=== PATIENT | male | born 1950 | race Caucasian/White ===

== ENCOUNTER 2024-02-28 15:18 | Inpatient (IN) | payer MEDICARE, MEDICAID ==
[~2024-02-28] VITALS: Ht 170.2 cm; Wt 72.1 kg
[2024-02-28 15:23] VITALS: O2SAT 96
[2024-02-28 16:15] LABS: CHLORIDE 111 mEq/L (98-107); POTASSIUM 5.7 mEq/L (3.5-5.1); SODIUM 139 mEq/L (136-145)
[2024-02-28 16:16] LABS: CALCIUM 6.8 mg/dL (8.7-10.4); CARBON DIOXIDE 12 mEq/L (21-32)
[2024-02-28 16:19] LABS: INR 1.5; PROTHROMBIN TIME 16.5 sec (9.6-11.0)
[2024-02-28 16:21] LABS: CREATININE 4.9 mg/dL (0.6-1.3); GLUCOSE 65 mg/dL (70-105)
[2024-02-28] MEDS: SODIUM CHLORIDE 0.9% 1000ML BAG (SEPSIS BOLUS) IV ONE (16:22)
[2024-02-28] MEDS: CEFTRIAXONE 1GM/50ML 50 ML IV ONE (16:22)
[2024-02-28 16:23] LABS: ALANINE AMINOTRANSFERASE 25 IU/L (10-49); ALBUMIN 3.1 g/dL (3.2-4.8); ASPARTATE AMINOTRANSFERASE 159 IU/L (<34); BILIRUBIN TOTAL 2.9 mg/dL (0.1-1.0)
[2024-02-28 16:24] LABS: PROTEIN TOTAL 5.9 g/dL (6.0-8.3)
[2024-02-28] MEDS: DEXTROSE 50% WATER 50ML SYRINGE IV ONE (16:29)
[2024-02-28 16:37] LABS: UREA NITROGEN BLOOD 118 mg/dL (9-23)
[2024-02-28 16:38] LABS: TROPONIN I HIGH SENSITIVITY 189 ng/L (3.0-53)
[2024-02-28 17:33] LABS: MEAN CORPUSCULAR HGB CONC 32.9 g/dL (31.0-37.0); MEAN CORPUSCULAR VOLUME 88.1 fL (80.0-94.0); MEAN PLATELET VOLUME 7.3 fl (7.4-10.4); RED BLOOD CELL COUNT 2.14 mill/uL (4.7-6.1); RED CELL DISTRIBUTION WIDTH 21.6 % (11.6-14.6); WHITE BLOOD COUNT 31.5 x1000/uL (4.5-11.0)
[2024-02-28 17:34] LABS: DIFFERENTIAL COMMENT 1
[2024-02-28] MEDS ORDERED: CLOPIDOGREL 75MG TABLET PO ONE (17:45)
[2024-02-28] MEDS ORDERED: ASPIRIN 325MG EC TABLET PO ONE (17:45)
[2024-02-28 17:47] LABS: HEMATOCRIT. 18.8 % (42.0-52.0); HEMOGLOBIN. 6.2 g/dL (14.0-18.0); PLATELET 22 x1000/uL (130-400)
[2024-02-28 17:56] LABS: CLARITY URINE TURBID (CLEAR); COLOR URINE DARK YELLOW (YELLOW); GLUCOSE URINE NEGATIVE (NEGATIVE); KETONES URINE TRACE (NEGATIVE); LEUKOCYTE ESTERASE URINE 1+ (NEGATIVE); NITRITE URINE NEGATIVE (NEGATIVE); OCCULT BLOOD URINE 3+ (NEGATIVE); PH URINE 5.5 (4.5-8.0); PROTEIN URINE 3+ (NEGATIVE); SPECIFIC GRAVITY URINE 1.015 (1.005-1.030)
[2024-02-28] MEDS ORDERED: IPRATROPIUM/ALBUTEROL 0.5-3(2.5)MG/3ML NEB HHN PRN (18:00)
[2024-02-28] MEDS ORDERED: ACETAMINOPHEN 325MG TABLET PO PRN (18:00)
[2024-02-28] MEDS ORDERED: DIPHENHYDRAMINE 50MG/ML VIAL IV PRN (18:00)
[2024-02-28] MEDS ORDERED: VANCOMYCIN 1.5GM/250ML IV NR (18:15)
[2024-02-28 18:19] LABS: BACTERIA URINE 2+; RBC URINE 50-100 /hpf (0-2); SQUAMOUS EPITHELIAL CELL URINE FEW /lpf (RARE/1+)
[2024-02-28 18:20] LABS: AMORPHOUS SEDIMENT URINE 1+ /lpf; URIC ACID CRYSTALS URINE 1+ /lpf
[2024-02-28 19:08] LABS: NUCLEATED RED BLOOD CELLS 7 /100 WBC
[2024-02-28] MEDS: PIPERACILLIN/TAZO 3.375G/50ML 50 ML IV NR (19:08)
[2024-02-28] MEDS: DEXT 5%/0.9% NACL 1,000 ML IV SCH (19:08)
[2024-02-28 19:09] LABS: PLATELET ESTIMATE MARKEDLY DECREASED
[2024-02-28 19:10] LABS: OVALOCYTES 1+
[2024-02-28 19:12] LABS: ANISOCYTOSIS 3+; HYPOCHROMASIA 1+; TARGET CELLS 1+
[2024-02-28] MEDS: SODIUM POLYSTYRENE SULFONATE 15 G/60 ML BOT PO NR (19:13)
[2024-02-28] MEDS ORDERED: SODIUM BICARBONATE 8.4% 50MEQ/50ML SYR IV NR (20:15)
[2024-02-28 22:30] VITALS: BP 119/51; PULSE 78; RESP 18; TEMP 36.28068; O2SAT 100
[2024-02-28] MEDS: VANCOMYCIN 1.5GM/250ML IV NR (23:51)
[2024-02-29] VITALS (13 sets, daily range): BP systolic 92–125; BP diastolic 36–85; PULSE 81–93; RESP 14–23; TEMP 36.16956–36.72516; O2SAT 9–99
[2024-02-29 01:02] LABS: HEMATOCRIT. 30.7 % (42.0-52.0); HEMOGLOBIN. 10.3 g/dL (14.0-18.0); MEAN CORPUSCULAR HEMOGLOBIN 29.1 pg (28.0-32.0); MEAN CORPUSCULAR HGB CONC 33.7 g/dL (31.0-37.0); MEAN CORPUSCULAR VOLUME 86.5 fL (80.0-94.0); MEAN PLATELET VOLUME 7.5 fl (7.4-10.4); RED BLOOD CELL COUNT 3.55 mill/uL (4.7-6.1); RED CELL DISTRIBUTION WIDTH 18.5 % (11.6-14.6); WHITE BLOOD COUNT 26.2 x1000/uL (4.5-11.0)
[2024-02-29 01:06] LABS: DIFFERENTIAL COMMENT 1
[2024-02-29 01:11] LABS: PLATELET 20 x1000/uL (130-400)
[2024-02-29 01:16] LABS: CREATINE KINASE 166 IU/L (46-171)
[2024-02-29] MEDS: SODIUM BICARBONATE 150 MEQ in DEXTROSE 5% WATER 850 ML IV SCH (01:25)
[2024-02-29 01:27] LABS: TROPONIN I HIGH SENSITIVITY 220 ng/L (3.0-53)
[2024-02-29 01:57] LABS: NUCLEATED RED BLOOD CELLS 4 /100 WBC; PLATELET ESTIMATE MARKEDLY DECREASED
[2024-02-29 01:58] LABS: HYPOCHROMASIA 1+; TARGET CELLS 1+
[2024-02-29 02:00] LABS: ANISOCYTOSIS 3+; OVALOCYTES 1+
[2024-02-29 07:05] LABS: HEMATOCRIT. 28.2 % (42.0-52.0); HEMOGLOBIN. 9.5 g/dL (14.0-18.0); MEAN CORPUSCULAR HEMOGLOBIN 29.1 pg (28.0-32.0); MEAN CORPUSCULAR HGB CONC 33.9 g/dL (31.0-37.0); MEAN CORPUSCULAR VOLUME 85.9 fL (80.0-94.0); RED BLOOD CELL COUNT 3.28 mill/uL (4.7-6.1)
[2024-02-29 07:09] LABS: CALCIUM 6.8 mg/dL (8.7-10.4); DIFFERENTIAL COMMENT 1
[2024-02-29 07:14] LABS: CREATININE 3.6 mg/dL (0.6-1.3)
[2024-02-29 08:15] LABS: ANISOCYTOSIS 2+; NUCLEATED RED BLOOD CELLS 43 /100 WBC; PLATELET ESTIMATE MARKEDLY DECREASED; TARGET CELLS 1+
[2024-02-29 08:18] LABS: MEAN PLATELET VOLUME 6.9 fl (7.4-10.4); PLATELET 20 x1000/uL (130-400)
[2024-02-29] MEDS: AZITHROMYCIN 500MG/250ML 250 ML IV SCH (10:33)
[2024-02-29] MEDS: PIPERACILLIN/TAZO 3.375G/50ML IV SCH (10:34)
[2024-02-29] MEDS: ONDANSETRON HCL 4MG/2ML INJ IV PRN (10:53)
[2024-02-29] MEDS: BLOOD SUGAR DIAGNOSTIC STRIP TEST SCH (11:40)
[2024-02-29] MEDS: INSULIN LISPRO 100 UNITS/ML SUBCUT SCH (12:10)
[2024-02-29] MEDS: DEXT 5%/0.45% NACL 1000ML 1,000 ML IV SCH (18:26)
[2024-02-29 21:20] LABS: CREATINE KINASE 117 IU/L (46-171)
[2024-02-29 23:25] LABS: CREATININE URINE RANDOM 111.1 mg/dL
[2024-03-01] VITALS (15 sets, daily range): BP systolic 87–131; BP diastolic 20–66; PULSE 84–97; RESP 16–26; TEMP 36.22512–36.89184; O2SAT 91–99
[2024-03-01 07:06] LABS: CARBON DIOXIDE 17 mEq/L (21-32); CHLORIDE 115 mEq/L (98-107); POTASSIUM 3.9 mEq/L (3.5-5.1); SODIUM 146 mEq/L (136-145)
[2024-03-01 07:07] LABS: CALCIUM 8.7 mg/dL (8.7-10.4)
[2024-03-01 07:11] LABS: IRON 78 ug/dL (65-175); URIC ACID > 20.0 mg/dL (3.7-9.2)
[2024-03-01 07:12] LABS: CREATININE 3.6 mg/dL (0.6-1.3); GLUCOSE 102 mg/dL (70-105)
[2024-03-01 07:14] LABS: TOTAL IRON BINDING CAPACITY 449 ug/dl (250-425)
[2024-03-01 07:18] LABS: HEMATOCRIT. 25.9 % (42.0-52.0); HEMOGLOBIN. 8.8 g/dL (14.0-18.0); MEAN CORPUSCULAR HEMOGLOBIN 29.4 pg (28.0-32.0); MEAN CORPUSCULAR HGB CONC 33.9 g/dL (31.0-37.0); MEAN CORPUSCULAR VOLUME 86.5 fL (80.0-94.0); MEAN PLATELET VOLUME 10.1 fl (7.4-10.4); RED BLOOD CELL COUNT 2.99 mill/uL (4.7-6.1); RED CELL DISTRIBUTION WIDTH 18.7 % (11.6-14.6)
[2024-03-01 07:21] LABS: DIFFERENTIAL COMMENT 1
[2024-03-01 07:23] LABS: LACTATE DEHYDROGENASE 3263 IU/L (120-246)
[2024-03-01 07:41] LABS: UREA NITROGEN BLOOD 116 mg/dL (9-23)
[2024-03-01 07:44] LABS: FERRITIN > 8250 ng/mL (22-322)
[2024-03-01 07:54] LABS: FOLIC ACID (FOLATE) SERUM 8.79 ng/mL (>5.38)
[2024-03-01 08:04] LABS: PLATELET 13 x1000/uL (130-400)
[2024-03-01] MEDS: DEXTROSE 50% WATER 50ML SYRINGE IV PRN (08:38)
[2024-03-01 08:39] LABS: VITAMIN B12 SERUM 7160 pg/mL (211-911)
[2024-03-01] MEDS ORDERED: CEFEPIME 1GM IN DEXT 5% 50ML IV SCH (09:45)
[2024-03-01] MEDS: VANCOMYCIN 1GM/200ML PMX (BAXTER) IV NR (10:00)
[2024-03-01 10:26] LABS: ANISOCYTOSIS 2+; NUCLEATED RED BLOOD CELLS 35 /100 WBC; PLATELET ESTIMATE MARKEDLY DECREASED; TARGET CELLS 2+
[2024-03-01] MEDS: PANTOPRAZOLE SODIUM 40 MG/VIAL IV SCH (10:35)
[2024-03-01 11:45] LABS: AMMONIA 46 uMol/L (<32)
[2024-03-01 11:46] LABS: ALANINE AMINOTRANSFERASE 30 IU/L (10-49)
[2024-03-01 11:47] LABS: ALBUMIN 2.8 g/dL (3.2-4.8); ASPARTATE AMINOTRANSFERASE 206 IU/L (<34); BILIRUBIN DIRECT 1.4 mg/dL (<=3.0); BILIRUBIN TOTAL 2.1 mg/dL (0.1-1.0); PROTEIN TOTAL 5.5 g/dL (6.0-8.3)
[2024-03-01 11:48] LABS: T4 FREE 0.62 ng/dL (0.89-1.76)
[2024-03-01 11:49] LABS: THYROID STIMULATING HORMONE 14.79 uIU/mL (0.55-4.78)
[2024-03-01 13:10] LABS: HEPATITIS B SURFACE ANTIGEN NEGATIVE (Negative)
[2024-03-01 13:31] LABS: HEPATITIS B CORE AB IGM NEGATIVE (Negative); HEPATITIS C AB NON REACTIVE (Neg) (Negative)
[2024-03-01] MEDS: METRONIDAZOLE 500 MG PREMIX 100 ML IV SCH (13:38)
[2024-03-01] MEDS: CEFEPIME 1GM/50ML 50 ML IV SCH ×2 (13:52→23:47)
[2024-03-01 14:35] LABS: HEPATITIS A AB IGM NEGATIVE (Negative)
[2024-03-02] VITALS (12 sets, daily range): BP systolic 78–109; BP diastolic 41–57; PULSE 68–93; RESP 17–35; TEMP 36.28068–36.83628; O2SAT 91–99
[2024-03-02 05:32] LABS: HEMATOCRIT. 24.9 % (42.0-52.0); HEMOGLOBIN. 8.4 g/dL (14.0-18.0); MEAN CORPUSCULAR HEMOGLOBIN 29.4 pg (28.0-32.0); MEAN CORPUSCULAR HGB CONC 33.7 g/dL (31.0-37.0); MEAN CORPUSCULAR VOLUME 87.2 fL (80.0-94.0); MEAN PLATELET VOLUME 8.4 fl (7.4-10.4); RED BLOOD CELL COUNT 2.85 mill/uL (4.7-6.1); RED CELL DISTRIBUTION WIDTH 19.5 % (11.6-14.6)
[2024-03-02 05:50] LABS: PROTHROMBIN TIME 21.4 sec (9.6-11.0)
[2024-03-02 06:09] LABS: CHLORIDE 113 mEq/L (98-107); POTASSIUM 3.8 mEq/L (3.5-5.1); SODIUM 144 mEq/L (136-145)
[2024-03-02 06:12] LABS: CARBON DIOXIDE 17 mEq/L (21-32)
[2024-03-02 06:13] LABS: CALCIUM 8.8 mg/dL (8.7-10.4)
[2024-03-02 06:17] LABS: CREATININE 3.6 mg/dL (0.6-1.3); GLUCOSE 77 mg/dL (70-105)
[2024-03-02 06:19] LABS: ALANINE AMINOTRANSFERASE 28 IU/L (10-49); ALBUMIN 2.9 g/dL (3.2-4.8); ASPARTATE AMINOTRANSFERASE 195 IU/L (<34)
[2024-03-02 06:20] LABS: BILIRUBIN DIRECT 1.8 mg/dL (<=3.0); BILIRUBIN TOTAL 2.6 mg/dL (0.1-1.0); PROTEIN TOTAL 5.7 g/dL (6.0-8.3)
[2024-03-02 06:45] LABS: DIFFERENTIAL COMMENT 1
[2024-03-02 06:51] LABS: UREA NITROGEN BLOOD 118 mg/dL (9-23)
[2024-03-02 09:11] LABS: COMPLEMENT C3 112 mg/dL (82-167); COMPLEMENT C4 36 mg/dL (12-38)
[2024-03-02 10:24] LABS: NUCLEATED RED BLOOD CELLS 16 /100 WBC
[2024-03-02 10:25] LABS: PLATELET ESTIMATE MARKEDLY DECREASED
[2024-03-02 10:28] LABS: PLATELET 31 x1000/uL (130-400)
[2024-03-02] MEDS: SODIUM BICARBONATE 650MG TABLET PO SCH (12:20)
[2024-03-02] MEDS: VANCOMYCIN 1GM/200ML PMX (BAXTER) IV SCH (12:20)
[2024-03-02 13:07] LABS: ANTI-NUCLEAR ANTIBODIES DIRECT Negative (Negative)
[2024-03-02] MEDS ORDERED: DEXTROSE 50% WATER 50ML SYRINGE IV PRN (13:15)
[2024-03-02 14:59] LABS: SMUDGE CELLS 1+
[2024-03-02 15:10] LABS: A/G RATIO 0.6 (0.7-1.7); ALBUMIN 1.9 g/dL (2.9-4.4); ALPHA-1-GLOBULIN 0.5 g/dL (0.0-0.4); ALPHA-2-GLOBULIN 0.5 g/dL (0.4-1.0); BETA GLOBULIN 0.9 g/dL (0.7-1.3); GAMMA GLOBULINS 1.1 g/dL (0.4-1.8); M-SPIKE Not Observed g/dL (Not Observed); TOTAL PROTEIN SERUM 4.9 g/dL (6.0-8.5)
[2024-03-02] MEDS: MORPHINE SULFATE 2 MG/ML INJ (NOT FOR IM USE) IV PRN (15:44)
[2024-03-03] VITALS (73 sets, daily range): BP systolic 61–159; BP diastolic 27–87; PULSE 75–116; RESP 20–25; TEMP 33.336–36.3918; O2SAT 85–100
[2024-03-03] MEDS ORDERED: NALOXONE HCL 0.4MG/ML VIAL IV PRN (04:15)
[2024-03-03] MEDS: DEXT 5%/LACTATED RINGERS 1,000 ML IV SCH (04:19)
[2024-03-03 05:38] LABS: CALCIUM 8.8 mg/dL (8.7-10.4); CHLORIDE 111 mEq/L (98-107); SODIUM 141 mEq/L (136-145)
[2024-03-03 05:43] LABS: GLUCOSE 73 mg/dL (70-105)
[2024-03-03 05:46] LABS: PHOSPHORUS 7.8 mg/dL (2.5-4.9)
[2024-03-03 06:16] LABS: CREATININE 4.8 mg/dL (0.6-1.3)
[2024-03-03 06:17] LABS: UREA NITROGEN BLOOD 123 mg/dL (9-23)
[2024-03-03 06:18] LABS: CARBON DIOXIDE < 10 mEq/L (21-32)
[2024-03-03 06:37] LABS: HEMATOCRIT. 23.1 % (42.0-52.0); HEMOGLOBIN. 7.4 g/dL (14.0-18.0); MEAN CORPUSCULAR HGB CONC 32.1 g/dL (31.0-37.0); MEAN CORPUSCULAR VOLUME 93.5 fL (80.0-94.0); RED BLOOD CELL COUNT 2.47 mill/uL (4.7-6.1); RED CELL DISTRIBUTION WIDTH 21.5 % (11.6-14.6)
[2024-03-03 06:59] LABS: DIFFERENTIAL COMMENT 1
[2024-03-03] MEDS ORDERED: SODIUM BICARBONATE 100 MEQ in DEXTROSE 5% WATER 1,000 ML IV SCH (07:45)
[2024-03-03] MEDS ORDERED: PROPOFOL 10MG/ML 100ML 100 ML IV SCH (07:45)
[2024-03-03] MEDS: NOREPINEPHRINE 8MG/250ML PMX 250 ML IV PRN (07:46)
[2024-03-03 10:42] LABS: BG BASE EXCESS -21.7 mmol/L (-2.0-3.0); BG CARBOXYHEMOGLOBIN 0.5 % (0.5-1.5); BG FRACTION INSPIRED OXYGEN 60; BG HCO3 ACT 9.7 mmol/L (21.0-28.0); BG METHEMOGLOBIN 0.2 % (0.5-1.5); BG OXYHEMOGLOBIN 92.3 % (94.0-98.0); BG PCO2 47.9 mmHg (35.0-48.0); BG PH 6.925 (7.350-7.450); BG PO2 88.8 mmHg (83.0-108.0); BG SAMPLE SITE LEFT RADIAL; BG TOTAL HEMOGLOBIN 8.8 g/dL (13.5-17.5); BG VENT MODE VENT - AC
[2024-03-03] MEDS: SODIUM BICARBONATE 150 MEQ in DEXTROSE 5% WATER 850 ML IV SCH (10:53)
[2024-03-03 11:08] LABS: ANISOCYTOSIS 3+; NUCLEATED RED BLOOD CELLS 12 /100 WBC; PLATELET ESTIMATE MARKEDLY DECREASED; SMUDGE CELLS 2+
[2024-03-03] MEDS ORDERED: PHENYLEPHRINE 50 MG in DEXT 5% WATER 245 ML IV PRN (11:30)
[2024-03-03] MEDS ORDERED: PHENYLEPHRINE 50MG/250ML PMX IV PRN (11:45)
[2024-03-03 12:13] LABS: HEMOGLOBIN 7.4 g/dL (14.0-18.0)
[2024-03-03 12:27] LABS: ALANINE AMINOTRANSFERASE 30 IU/L (10-49); ALBUMIN 3.1 g/dL (3.2-4.8); ASPARTATE AMINOTRANSFERASE 213 IU/L (<34); BILIRUBIN DIRECT 2.5 mg/dL (<=3.0); BILIRUBIN TOTAL 3.4 mg/dL (0.1-1.0); PROTEIN TOTAL 5.9 g/dL (6.0-8.3)
[2024-03-03 12:31] LABS: LACTIC ACID 10.2 mmol/L (0.4-2.0)
[2024-03-03 12:38] LABS: MEAN PLATELET VOLUME 9.8 fl (7.4-10.4); PLATELET 18 x1000/uL (130-400)
[2024-03-03 13:07] LABS: ATYPICAL P-ANCA <1:20 titer (Neg:<1:20); CYTOPLASMIC C-ANCA <1:20 titer (Neg:<1:20); PERINUCLEAR P-ANCA <1:20 titer (Neg:<1:20)
[2024-03-03 19:10] LABS: ANTI-MYELOPEROXIDASE AB < 0.2 units (0.0-0.9); ANTI-PROTEINASE 3 ABS < 0.2 units (0.0-0.9)
[2024-03-03] MEDS ORDERED: LORAZEPAM 2MG/ML INJ IV PRN (20:00)
[2024-03-03] MEDS ORDERED: MORPHINE SULFATE 250 MG in DEXT 5% WATER 225 ML IV PRN (20:30)
== END 2024-03-03 22:25 | DRG 871 ==
LOC: ER 15:18 → EDBEDREQ 15:33 → 7EST 16:06 → EDBEDREQ 16:11 → 5EST 02-29 13:15 → MICUSO 03-03 06:43
PROVIDERS: ADMIT Internal Medicine; ATTEND Internal Medicine
PROC: 30233N1 Transfusion of Nonautologous Red Blood Cells into Peripheral Vein, Percutaneous Approach (ICD-10-PCS; 2024-02-28)
PROC: 30233R1 Transfusion of Nonautologous Platelets into Peripheral Vein, Percutaneous Approach (ICD-10-PCS; 2024-02-29)
PROC: 0BH18EZ Insertion of Endotracheal Airway into Trachea, Via Natural or Artificial Opening Endoscopic (ICD-10-PCS; principal; 2024-03-03)
PROC: 5A1935Z Respiratory Ventilation, Less than 24 Consecutive Hours (ICD-10-PCS; 2024-03-03)
PROC: 02HV33Z Insertion of Infusion Device into Superior Vena Cava, Percutaneous Approach (ICD-10-PCS; 2024-03-03)
PROC: B548ZZA Ultrasonography of Superior Vena Cava, Guidance (ICD-10-PCS; 2024-03-03)
DX: A41.9 Sepsis, unspecified organism (principal); J18.9 Pneumonia, unspecified organism; J96.01 Acute respiratory failure with hypoxia; R65.21 Severe sepsis with septic shock; E87.20 Acidosis, unspecified; N39.0 Urinary tract infection, site not specified; K92.0 Hematemesis; D68.9 Coagulation defect, unspecified; J90 Pleural effusion, not elsewhere classified; N17.9 Acute kidney failure, unspecified; D75.81 Myelofibrosis; K80.00 Calculus of gallbladder with acute cholecystitis without obstruction; G93.40 Encephalopathy, unspecified; Z66 Do not resuscitate; E11.65 Type 2 diabetes mellitus with hyperglycemia; E11.22 Type 2 diabetes mellitus with diabetic chronic kidney disease; E86.9 Volume depletion, unspecified; E87.5 Hyperkalemia; I12.9 Hypertensive chronic kidney disease with stage 1 through stage 4 chronic kidney disease, or unspecified chronic kidney disease; N18.9 Chronic kidney disease, unspecified; R74.01 Elevation of levels of liver transaminase levels; R31.9 Hematuria, unspecified; D50.9 Iron deficiency anemia, unspecified; E83.39 Other disorders of phosphorus metabolism; E78.5 Hyperlipidemia, unspecified; J32.0 Chronic maxillary sinusitis; I25.10 Atherosclerotic heart disease of native coronary artery without angina pectoris; N28.1 Cyst of kidney, acquired; D69.6 Thrombocytopenia, unspecified; Z78.1 Physical restraint status; R79.89 Other specified abnormal findings of blood chemistry; E11.649 Type 2 diabetes mellitus with hypoglycemia without coma; N40.0 Benign prostatic hyperplasia without lower urinary tract symptoms; R16.0 Hepatomegaly, not elsewhere classified; R34 Anuria and oliguria; Z90.81 Acquired absence of spleen; Z51.5 Encounter for palliative care; Z90.49 Acquired absence of other specified parts of digestive tract
CPT/HCPCS: 31500; 36415; 36600; 71045; 71250; 74176; 76700; 80048; 80076; 80202; 81003; 82105; 82140; 82270; 82375; 82550; 82570; 82607; 82728; 82746; 82805; 82962; 83036; 83520; 83540; 83550; 83605; 83615; 83735; 84100; 84145; 84153; 84155; 84156; 84165; 84439; 84443; 84481; 84484; 84550; 85014; 85018; 85025; 85044; 86038; 86160; 86256; 86705; 86709; 86850; 86900; 86920; 87077; 87186; 87340; 93005; 93306; 93970; 94003; 99291; J0456; J0692; J0696; J2270; J2405; J2470; J2543; J3370; J3490; J7030; J7070; J7121; P9016; P9034